=== PATIENT | female | born 1985 | race Caucasian/White ===

== ENCOUNTER 2017-09-11 22:15 | Emergency (ER) | payer OTHER ==
[~2017-09-11] VITALS: Ht 167.6 cm; Wt 75.4 kg
[2017-09-11 22:25] VITALS: TEMP 37; Ht 167.6 cm; Wt 75.4 kg
[2017-09-11] MEDS ORDERED: LORAZEPAM 2 MG/ML 1 ML VIAL IV STA (22:56)
[2017-09-11] MEDS ORDERED: SODIUM CHLORIDE 0.9% 1000ML 1,000 ML IV STA (22:56)
[2017-09-11 23:05] VITALS: O2SAT 100
[2017-09-11 23:07] LABS: BASO % 0.4 %; BASO ABS # 0.04 K/uL (0-0.2); EOS % 0.3 %; EOS ABS # 0.03 K/uL (0-0.5); HEMATOCRIT 40.9 % (37-47); IG# 0.02 K/uL (0.00-0.02); LYMPH % 29.4 %; LYMPH ABS # 3.21 K/uL (1.2-3.4); MEAN CELL VOLUME 88.1 fL (80-100); MEAN CORPUSCULAR HEMOGLOBIN 30.2 pg (25-34); MEAN CORPUSCULAR HGB CONC 34.2 g/dl (32-36); MEAN PLATELET VOLUME 11.2 fL (7.4-10.4); MONO % 5.6 %; MONO ABS # 0.61 K/uL (0.11-0.59); NEUT % 64.1 %; NEUT ABS # 6.99 K/uL (1.4-6.5); PLATELET COUNT 244 K/uL (130-400); RED CELL DISTRIBUTION WIDTH CV 13.9 % (11.5-14.5)
[2017-09-11 23:15] LABS: ALBUMIN 4.1 gm/dl (3.4-5.0); CALCIUM 9.2 mg/dl (8.5-10.1); CREATININE 0.96 mg/dl (0.60-1.20); POTASSIUM 4.5 mmol/L (3.5-5.1)
[2017-09-11 23:17] LABS: PTT PATIENT 21.5 SECONDS (21.0-31.0); TOTAL PROTEIN 8.4 gm/dl (6.4-8.2)
[2017-09-12] MEDS ORDERED: LEVE750T PO (00:46)
[2017-09-12] MEDS ORDERED: ATV/1 PO (00:47)
[2017-09-12 01:55] VITALS: BP 97/49; PULSE 66; O2SAT 98
--- NOTE | 2017-09-12 02:08 | EMERGENCY ROOM VISIT NOTE ---
History First contact with patient: 22:42 Chief Complaint: SEIZURE Stated Complaint: SEIZURE Nursing Triage Summary: Pt was transferred today to [facility]. During intake pt had a seizure, hit posterior head during fall. Per CP's pt "had tremors for 45min before EMS arrived". Pt was treated yesterday for pseudoseizure at [facility]. Pt states she has a history of alcohol use, last drink was Wednesday 09/06. History of Present Illness The patient is a 31 year old female who presents to the Emergency Room with complaints of shaking episode tonight. The zoology technical officer was present for this and states the patient started shaking but was able to converse with her. She was not convulsing. Patient states she is an alcoholic and her last drink was Saturday which was 5 days ago. She states she has a history of alcohol withdrawal seizures. Patient states she drinks daily. Patient states that she shakes in the morning has to drink 2 Pounders of beer in order to stop the shakes. Patient states she was seen yesterday at [facility] for a shaking episode. Patient states they started her on medication but is unsure exactly what they are supposed to give her. Patient states the present doctor did not give her the medication. Patient denies official diagnosis of seizures. Patient states she has also tried multiple other illegal drugs in the past. Patient states she hit her head tonight and was of a headache described as throbbing, ranging in severity 7 out of 10 to the right occipital region. Patient denies chest pain, dyspnea, fever, chills, vomiting, diarrhea. Patient states she is tolerating p.o. fluids and food. Patient also states she has been to [facility] for for alcohol withdrawal seizures. Review of Systems An 10 system review of systems was completed with positives and pertinent negatives listed in the HPI. Past Medical/Surgical History Alcohol abuse Social History Smoking Status: Former Smoker Occupation Status: other (Incarcerated) Current/Historical Medications Scheduled Levetiracetam (Keppra), Unknown Dose PO BID Scheduled PRN Lorazepam (Ativan), 1 MG PO TID PRN for SEIZURES Physical Exam Vital Signs Date Time Temp Pulse Resp B/P (MAP) Pulse Ox O2 Delivery O2 Flow Rate FiO2 09/11/17 23:55 73 18 104/70 96 Room Air 09/11/17 23:05 100 Room Air 09/11/17 22:29 100 Room Air 3/21/18 22:27 75 09/11/17 22:25 37.0 81 18 122/79 100 Room Air Physical Exam VITALS: Vitals are noted on the nurse's note and reviewed by myself. Vital signs stable. GENERAL: [facility], in no acute distress, nondiaphoretic, well- developed well-nourished. SKIN: The skin was without rashes, erythema, edema, or bruising. There is no tenting of the skin. Capillary reflex less than 2 seconds. HEAD: Normocephalic atraumatic. EARS: External auditory canals clear, tympanic membranes pearly rivas without erythema or effusion bilaterally. EYES: Pupils equal round and reactive to light and accommodation. Conjunctivae without injection, sclerae without icterus. Extraocular movements intact. NOSE: Patent, turbinates without inflammation or discharge. No sinus tenderness. MOUTH: Mucous membranes moist. Pharynx without erythema or exudate. Uvula midline. Airway patent. Tongue does not deviate. NECK: Supple without nuchal rigidity. No lymphadenopathy. No thyromegaly. Cervical spine is nontender. No JVD. HEART: Regular rate and rhythm without murmurs gallops or rubs. LUNGS: Clear to auscultation bilaterally without wheezes, rales or rhonchi. No retractions or accessory muscle use. ABDOMEN: Positive bowel sounds x 4. Normal tympanic percussion. Soft, nontender, without masses or organomegaly. Levine sign negative. No guarding or rebound tenderness. No CVA tenderness MUSCULOSKELETAL: No muscle atrophy, erythema, or edema noted. NEURO: Patient was alert and oriented to person place and time. Normal sensation to light and sharp touch. No focal neurological deficits. Medical Decision & Procedures Laboratory Results 09/11/17 22:45 Red Blood Count 4.64, Mean Corpuscular Volume 88.1, Mean Corpuscular Hemoglobin 30.2, Mean Corpuscular Hemoglobin Concent 34.2, Mean Platelet Volume 11.2, Neutrophils (%) (Auto) 64.1, Lymphocytes (%) (Auto) 29.4, Monocytes (%) (Auto) 5.6, Eosinophils (%) (Auto) 0.3, Basophils (%) (Auto) 0.4, Neutrophils # (Auto) 6.99, Lymphocytes # (Auto) 3.21, Monocytes # (Auto) 0.61, Eosinophils # (Auto) 0.03, Basophils # (Auto) 0.04 09/11/17 22:45 Test 09/11/17 22:45 09/11/17 23:18 White Blood Count 10.90 K/uL (4.8-10.8) Red Blood Count 4.64 M/uL (4.2-5.4) Hemoglobin 14.0 g/dL (12.0-16.0) Hematocrit 40.9 % (37-47) Mean Corpuscular Volume 88.1 fL (80-100) Mean Corpuscular Hemoglobin 30.2 pg (25-34) Mean Corpuscular Hemoglobin Concent 34.2 g/dl (32-36) Platelet Count 244 K/uL (130-400) Mean Platelet Volume 11.2 fL (7.4-10.4) Neutrophils (%) (Auto) 64.1 % Lymphocytes (%) (Auto) 29.4 % Monocytes (%) (Auto) 5.6 % Eosinophils (%) (Auto) 0.3 % Basophils (%) (Auto) 0.4 % Neutrophils # (Auto) 6.99 K/uL (1.4-6.5) Lymphocytes # (Auto) 3.21 K/uL (1.2-3.4) Monocytes # (Auto) 0.61 K/uL (0.11-0.59) Eosinophils # (Auto) 0.03 K/uL (0-0.5) Basophils # (Auto) 0.04 K/uL (0-0.2) RDW Standard Deviation 45.0 fL (36.4-46.3) RDW Coefficient of Variation 13.9 % (11.5-14.5) Immature Granulocyte % (Auto) 0.2 % Immature Granulocyte # (Auto) 0.02 K/uL (0.00-0.02) Prothrombin Time 10.7 SECONDS (9.0-12.0) Prothromb Time International Ratio 1.0 (0.9-1.1) Activated Partial Thromboplast Time 21.5 SECONDS (21.0-31.0) Partial Thromboplastin Ratio 0.8 Anion Gap 8.0 mmol/L (3-11) Est Creatinine Clear Calc Drug Dose 88.1 ml/min Estimated GFR () 91.3 Estimated GFR (Non- 78.8 BUN/Creatinine Ratio 12.8 (10-20) Osmolality 292 mOsm/kg (280-300) Calcium Level 9.2 mg/dl (8.5-10.1) Total Bilirubin 0.4 mg/dl (0.2-1) Direct Bilirubin 0.1 mg/dl (0-0.2) Aspartate Amino Transf (AST/SGOT) 23 U/L (15-37) Alanine Aminotransferase (ALT/SGPT) 30 U/L (12-78) Alkaline Phosphatase 72 U/L (45-117) Total Creatine Kinase 834 U/L (26-192) Total Protein 8.4 gm/dl (6.4-8.2) Albumin 4.1 gm/dl (3.4-5.0) Lipase 180 U/L (73-393) Human Chorionic Gonadotropin, Qual NEG (NEG) Salicylates Level < 1.7 mg/dl (2.8-20) Acetaminophen Level < 2 ug/ml (10-30) Ethyl Alcohol mg/dL < 3.0 mg/dl (0-3) Medications Administered Medications (Trade) Dose Ordered Sig/Beth Route Start Time Stop Time Status Last Admin Dose Admin Sodium Chloride 1,000 ml @ 999 mls/hr Q1H1M STAT IV 09/11/17 22:56 09/11/17 23:56 DC 09/11/17 23:15 999 MLS/HR Lorazepam (Ativan Inj) 1 mg NOW STAT IV 09/11/17 22:56 09/11/17 23:00 DC 09/11/17 23:15 1 MG ED Course Prior records/ancillary studies reviewed and summarized above. Nursing notes reviewed. Additional history obtained from correction officers. The patient's history was concerning for shaking episode with history of alcohol withdrawal seizures. Differential diagnosis: Etiologies such as alcohol abuse, malingering, metabolic, infection, hypo/ hyperglycemia, electrolyte abnormalities, cardiac sources, intracerebral event, toxicologic, neurologic, as well as others were entertained. Physical examination: As above. ER treatment provided: IV Lock On reassessment the patient felt better. Diagnostics interpretation by me: ECG: Normal sinus, normal intervals, no acute ST-T wave changes, no QRS widening , impression normal sinus rhythm interpreted by myself The labs revealed stable H&H. Negative alcohol Imaging studies: Head CT negative for intracranial bleed or fracture I obtain the patient's records from [facility] and patient had unremarkable workup The ER physician did write for prescription for Dilantin for psychogenic nonepileptic seizures versus alcohol withdrawal. Patient was advised that she can continue this medication or see the penitentiary doctor tomorrow for further evaluation and treatment. I informed her I do not feel comfortable writing for this medication without official diagnosis of epilepsy since the patient has a history of alcohol withdrawal seizures. Patient is now 5 days out from her last drink. I do not believe she is at risk for alcohol withdrawal seizures. Exam and history seem consistent with a shaking episode. I do not believe she had a real seizure. Patient was not postictal and she was able to converse the entire time with a zoology technical officer. Patient was advised to follow-up tomorrow with the present doctor for further evaluation and treatment or here in the ER sooner for chest pain, seizures, confusion, worsening sinus symptoms or as needed. Patient was neurovascularly and neurologically intact. She is well-appearing. She was answering questions appropriately. By the evaluation outlined above emergent etiologies such as infection, electrolyte abnormalities, cardiac sources, intracerebral event, toxologic, neurologic, abnormalities blood glucose, metabolic, as well as others were deemed relatively unlikely. The pt informed about the findings as listed above. All questions were answered and pleased with the treatment. Return instructions were outlined and the patient was discharged in stable condition. Case reviewed with my attending Referral: The patient was referred back to primary care physician for follow-up tomorrow for a recheck of the current condition. The chart was completed utilizing [employer] Speech voice recognition software. Grammatical errors, random word insertions, pronoun errors, and incomplete sentences are an occassional consequence of this system due to software limitations, ambient noise, and hardware issues. Any formal questions or concerns about the content, text, or information contained within the body of this dictation should be directly addressed to the physician office administrative assistant for clarification. Medical Decision As above Medication Reconcilliation Current Medication List: was personally reviewed by me Blood Pressure Screening Patient's blood pressure: Normal blood pressure Impression Primary Impression: Alcohol withdrawal Departure Information Dispostion Home / Self-Care Condition GOOD Forms HOME CARE DOCUMENTATION FORM, IMPORTANT VISIT INFORMATION Patient Instructions Alcohol Abuse - [facility], [facility] Additional Instructions Recommend no alcohol or drug use. Recommend that you seek help with your alcohol and drug use. Rest and drink plenty of fluids as tolerated. Continue current medications. Return to the ER immediately for worsening or persistent shaking, abdominal pain , vomiting, fevers, chest pains, difficulty breathing, worsening of your condition, or as needed. Follow up with your primary physician/penitentiary doctor tomorrow for a recheck of your current condition. Problem Qualifiers Primary Impression: Alcohol withdrawal Complication of substance-induced condition: uncomplicated Qualified Codes: F10.230 - Alcohol dependence with withdrawal, uncomplicated
--- NOTE | 2017-09-12 07:18 | DIAGNOSTIC IMAGING REPORT ---
HEAD WITHOUT CONTRAST (CT) CLINICAL HISTORY: 31 years-old Female presenting with seizure, head injury. TECHNIQUE: Multidetector CT imaging of the head was performed without the use of intravenous contrast. IV contrast: None. A dose lowering technique was used consistent with the principles of ALARA (as low as reasonably achievable). COMPARISON: None. CT DOSE (mGy.cm): The estimated cumulative dose is 537.48 mGy.cm. FINDINGS: Digital Marketing Project Manager topogram: Unremarkable. Ventricles and sulci normal in size. Brain parenchyma normal in appearance with preserved rivas-white differentiation. No mass effect or midline shift. No hemorrhage or acute territorial infarct. No extra-axial fluid collection. Paranasal sinuses and mastoid air cells clear. Calvarium intact. Minimal swelling of the right parietal scalp with trace subgaleal hematoma. IMPRESSION: 1. No acute intracranial abnormality. 2. Superficial soft tissue injury at the right parietal scalp with trace subgaleal hematoma. Electronically signed by: Kirt More M.D. 09/12/2017 7:17 AM Dictated Date/Time: 09/12/2017 6:51 AM
== END 2017-09-12 01:55 | disposition home or self-care (01) ==
LOC: C.EDC 22:19
DX: F10.230 Alcohol dependence with withdrawal, uncomplicated (principal); Z87.891 Personal history of nicotine dependence